=== PATIENT | male | born 1945 | race Caucasian/White ===

== ENCOUNTER → 2016-11-07 | Outpatient (CLI) | payer MEDICARE, OTHER ==
[~2016-11-07] MED LIST: ALEVE220 M1 PO; ASPIR-LOW81 MG PO; BENADRYL-DPS25 MG PO; COLACE-DPS100 MG PO; DAILY MULTIPLE1 EAC1 PO; DECADRON-DPS4 MG PO; FISH OIL300 MG PO; MAALOX DPS30 ML PO; MAGNESIUM250 M1 PO; MIRALAX PACKET17 GM PO; OXY IR DPS5 MG PO; PROTANDIM PO; TYLENOL DPS325 MG PO
== END | disposition home or self-care (01) ==
LOC: THER.S 11:31 → THER.SSS 12:59
DX: C78.00 Secondary malignant neoplasm of unspecified lung (principal); C34.90 Malignant neoplasm of unspecified part of unspecified bronchus or lung; R63.0 Anorexia; R51 Headache